=== PATIENT | male | born 1990 | race African-American/Black ===

== ENCOUNTER 2016-11-07 11:52 | Emergency (ER) | payer SELFPAY ==
[2016-11-07 12:02] VITALS: BP 160/111
[2016-11-07] MEDS ORDERED: OXYCODONE-ACETAMINOPHEN 5-325 MG TABLET PO ONE (12:28)
[2016-11-07] MEDS ORDERED: BUPIVACAINE HCL 0.5%-EPI 1:200000 INJ/PF 30 ML VIAL INJ ONE (12:29)
--- NOTE | 2016-11-07 13:23 | ER Document Report ---
HPI - HPI Patient complains to provider of: Dental pain Onset: Last week Onset/Duration: Worse Quality of pain: Sharp Pain Level: 5 Context: Patient complains of dental pain to the left lower jaw for the past week that got noticeably worse today. Patient denies any fever, cough, cold symptoms, back pain or chest pain. Associated Symptoms: Other - Dental pain Exacerbated by: Denies Relieved by: Denies Similar symptoms previously: Yes Recently seen / treated by doctor: No - ROS ROS below otherwise negative: Yes Systems Reviewed and Negative: Yes All other systems reviewed and negative - CONSTITUTIONAL Constitutional: DENIES: Fever, Chills - NEURO Neurology: DENIES: Weakness - CARDIOVASCULAR Cardiovascular: DENIES: Chest pain - RESPIRATORY Respiratory: DENIES: Trouble Breathing, Coughing - GASTROINTESTINAL Gastrointestinal: DENIES: Nausea, Patient vomiting - MUSCULOSKELETAL Musculoskeletal: DENIES: Back Pain, Neck Pain - DERM Skin Color: Normal Skin Problems: None Past Medical History - General Information source: Patient - Social History Smoking Status: Current Every Day Smoker Chew tobacco use (# tins/day): No Frequency of alcohol use: Social Drug Abuse: Marijuana Occupation: [employer] A [employer] service Lives with: Spouse/Significant other Family History: CAD, Hyperlipidemia, Hypertension Pulmonary Medical History: Reports: Hx Asthma - A CHILD, NO MEDS NOW Renal/ Medical History: Denies: Hx Peritoneal Dialysis Surgical Hx: Negative - Immunizations Hx Diphtheria, Pertussis, Tetanus Vaccination: Yes Vertical Provider Document - CONSTITUTIONAL Agree With Documented VS: Yes Exam Limitations: No Limitations General Appearance: WD/WN, No Apparent Distress - INFECTION CONTROL TRAVEL OUTSIDE OF THE [place] IN LAST 30 DAYS: No - HEENT HEENT: Atraumatic, Normocephalic Mouth Diagram: 1 - erupting tooth, tender to touch - NECK Neck: Normal Inspection, Supple. negative: Lymphadenopathy-Left, Lymphadenopathy-Right - RESPIRATORY Respiratory: Breath Sounds Normal, No Respiratory Distress O2 Sat by Pulse Oximetry: 100 - CARDIOVASCULAR Cardiovascular: Regular Rate, Regular Rhythm - MUSCULOSKELETAL/EXTREMETIES Musculoskeletal/Extremeties: MAEW - NEURO Level of Consciousness: Awake, Alert, Appropriate Motor/Sensory: No Motor Deficit - DERM Integumentary: Warm, Dry, No Rash Course - Re-evaluation Re-evalutation: 11/07/16 13:22 Inferior alveolar dental block performed, patient reports pain relief from dental pain 11/07/16 13:23 The patient has been informed that they may have pre-hypertension or hypertension based on a blood pressure reading in the emergency department. I recommend that patient call the primary care provider listed on their discharge instructions or a physician of their choice by this week to arrange follow-up for further evaluation of possible pre-hypertension or hypertension. - Vital Signs Vital signs: Temp Pulse Resp BP Pulse Ox 98.8 F 65 18 160/111 H 100 11/07/16 12:00 11/07/16 12:00 11/07/16 12:00 11/07/16 12:00 11/07/16 12:00 Discharge - Discharge Clinical Impression: Elevated blood pressure reading, Pain, dental Condition: Stable Disposition: HOME, SELF-CARE Instructions: Dentist, Oral Narcotic Medication ([facility]), Toothache ([facility]) Additional Instructions: Return immediately for any new or worsening symptoms Followup with your primary care provider, call tomorrow to make a followup appointment Follow-up with a dental care provider Prescriptions: Acetaminophen with Codeine [Acetaminophen-Cod #3 Tablet] 1 each PO Q6 PRN #15 tablet PRN Reason: Naproxen [Naprosyn 250 Nmg Tablet] 1 tab PO BID #14 tablet Forms: Return to Work Referrals: [facility] [Provider Group] - Follow up as needed [facility] [Provider Group] - Follow up tomorrow
== END 2016-11-07 13:34 | disposition home or self-care (01) ==
LOC: ER 11:52
DX: K08.89 Other specified disorders of teeth and supporting structures (principal); R03.0 Elevated blood-pressure reading, without diagnosis of hypertension; F17.200 Nicotine dependence, unspecified, uncomplicated
CPT/HCPCS: 99282; J3490

== ENCOUNTER 2017-01-05 14:13 | Emergency (ER) | payer SELFPAY ==
[2017-01-05 14:17] VITALS: BP 147/93
--- NOTE | 2017-01-05 14:36 | ER Document Report ---
ED General - General Chief Complaint: Productive Cough Stated Complaint: COUGH Time Seen by Provider: 01/05/17 14:32 Mode of Arrival: Ambulatory Information source: Patient Notes: Patient states he has cough and cold for 2-3 days. He states that he had some small specks of blood when he coughed. Usually the mucus is been yellow-green. Symptoms are worse with exertion and better with rest. There is no significant radiation of the symptoms. Symptoms have been intermittent. They are mild to moderate. TRAVEL OUTSIDE OF THE [place] IN LAST 30 DAYS: No - Related Data Allergies/Adverse Reactions: No Known Allergies Allergy (Verified 01/05/17 14:15) Past Medical History - General Information source: Patient - Social History Smoking Status: Current Every Day Smoker Chew tobacco use (# tins/day): No Frequency of alcohol use: Social Drug Abuse: None Family History: CAD, Hyperlipidemia, Hypertension Patient has suicidal ideation: No Patient has homicidal ideation: No Pulmonary Medical History: Reports: Hx Asthma - A CHILD, NO MEDS NOW Renal/ Medical History: Denies: Hx Peritoneal Dialysis - Immunizations Hx Diphtheria, Pertussis, Tetanus Vaccination: Yes Review of Systems - Review of Systems Constitutional: denies: Chills, Fever Cardiovascular: denies: Chest pain, Palpitations Respiratory: Cough, Sputum. denies: Short of breath Physical Exam - Vital signs Vitals: Temp Pulse Resp BP Pulse Ox 99.1 F 84 16 147/93 H 100 01/05/17 14:15 01/05/17 14:15 01/05/17 14:15 01/05/17 14:15 01/05/17 14:15 Interpretation: Hypertensive - General General appearance: Appears well, Alert - HEENT Head: Normocephalic, Atraumatic Eyes: Normal Pupils: PERRL - Respiratory Respiratory status: No respiratory distress Chest status: Nontender Breath sounds: Normal Chest palpation: Normal - Cardiovascular Rhythm: Regular Heart sounds: Normal auscultation Murmur: No - Abdominal Inspection: Normal Distension: No distension Bowel sounds: Normal Tenderness: Nontender Organomegaly: No organomegaly - Back Back: Normal, Nontender - Extremities General upper extremity: Normal inspection, Nontender, Normal color, Normal ROM , Normal temperature General lower extremity: Normal inspection, Nontender, Normal color, Normal ROM , Normal temperature, Normal weight bearing. No: Fortino's sign - Neurological Neuro grossly intact: Yes Cognition: Normal Orientation: AAOx4 [place] Coma Scale Eye Opening: Spontaneous [place] Coma Scale Verbal: Oriented [place] Coma Scale Motor: Obeys Commands [place] Coma Scale Total: 15 Speech: Normal Motor strength normal: LUE, RUE, LLE, RLE Sensory: Normal - Psychological Associated symptoms: Normal affect, Normal mood - Skin Skin Temperature: Warm Skin Moisture: Dry Skin Color: Normal Course - Vital Signs Vital signs: Temp Pulse Resp BP Pulse Ox 99.1 F 84 16 147/93 H 100 01/05/17 14:15 01/05/17 14:15 01/05/17 14:15 01/05/17 14:15 01/05/17 14:15 Discharge - Discharge Clinical Impression: URI (upper respiratory infection) Qualifiers: URI type: unspecified URI Qualified Code(s): J06.9 - Acute upper respiratory infection, unspecified Condition: Stable Disposition: HOME, SELF-CARE Instructions: Upper Respiratory Illness ([facility]) Additional Instructions: Your blood pressure is elevated today. Please have this rechecked within 1 week by your doctor. Prescriptions: Amlodipine Besylate [Norvasc 2.5 mg Tablet] 2.5 mg PO DAILY #30 tablet Amoxicillin 500 mg PO TID 7 Days #21 capsule Benzonatate [Tessalon Perles 100 mg Capsule] 100 mg PO ASDIR PRN #40 capsule PRN Reason: Forms: Elevated Blood Pressure, Return to Work Referrals: NATY HINOJOSA MD [COMMUNITY BASED STAFF] - Follow up as needed
== END 2017-01-05 14:57 | disposition home or self-care (01) ==
LOC: ER 14:13
DX: J06.9 Acute upper respiratory infection, unspecified (principal); R05 Cough; F17.200 Nicotine dependence, unspecified, uncomplicated
CPT/HCPCS: 99283

== ENCOUNTER 2017-02-03 09:03 | Emergency (ER) | payer SELFPAY ==
[2017-02-03] MEDS ORDERED: NYSTATIN/TRIAMCIN OINTMENT 15 GM TP ONE (09:27)
--- NOTE | 2017-02-03 09:27 | ER Document Report ---
ED Extremity Problem, Lower - General Chief Complaint: Foot Pain Stated Complaint: FOOT PAIN Time Seen by Provider: 02/03/17 09:12 Mode of Arrival: Ambulatory Information source: Patient Notes: 27-year-old male presents to ED for complaint of skin issue between his fourth and fifth toe on his left foot. He says it is been bothering him for at least a month or so but yesterday became much more painful. States he has never had this before and does not know what it is. TRAVEL OUTSIDE OF THE [place] IN LAST 30 DAYS: No - HPI Patient complains to provider of: Pain. No: Injury Location: 4th Toe, 5th Toe Occurred: Other - A month Onset/Duration: Gradual Quality of pain: Achy, Sharp Severity: Moderate Pain Level: 2 Context: Other - Athlete's foot Recent injury: No Associated symptoms: Painful ambulation Exacerbated by: Walking Relieved by: Nothing - Related Data Allergies/Adverse Reactions: No Known Allergies Allergy (Verified 02/03/17 09:04) Past Medical History - General Information source: Patient - Social History Smoking Status: Current Every Day Smoker Cigarette use (# per day): Yes - One third pack per day Chew tobacco use (# tins/day): No Smoking Education Provided: Yes - Less than 2 minutes Frequency of alcohol use: Social Drug Abuse: Marijuana Lives with: Spouse/Significant other Family History: CAD, DM, Hyperlipidemia, Hypertension Patient has suicidal ideation: No Patient has homicidal ideation: No - Past Medical History Cardiac Medical History: Reports: None Pulmonary Medical History: Reports: Hx Asthma - A CHILD, NO MEDS NOW EENT Medical History: Reports: None Neurological Medical History: Reports: None Endocrine Medical History: Reports: None Renal/ Medical History: Reports: None Malignancy Medical History: Reports None GI Medical History: Reports: None Musculoskeltal Medical History: Reports None Skin Medical History: Reports None Psychiatric Medical History: Reports: None Traumatic Medical History: Reports: None Infectious Medical History: Reports: None Surgical Hx: Negative Past Surgical History: Reports: None - Immunizations Immunizations up to date: Yes Hx Diphtheria, Pertussis, Tetanus Vaccination: Yes Review of Systems - Review of Systems Constitutional: No symptoms reported EENT: No symptoms reported Cardiovascular: No symptoms reported Respiratory: No symptoms reported Gastrointestinal: No symptoms reported Genitourinary: No symptoms reported Male Genitourinary: No symptoms reported Musculoskeletal: No symptoms reported Skin: Other - Athlete's foot between the left fourth and fifth toe Hematologic/Lymphatic: No symptoms reported Neurological/Psychological: No symptoms reported Physical Exam - Vital signs Vitals: Temp Pulse Resp BP Pulse Ox 97.9 F 70 14 124/76 97 02/03/17 09:12 02/03/17 09:12 02/03/17 09:12 02/03/17 09:12 02/03/17 09:12 Interpretation: Normal - General General appearance: Appears well, Alert - HEENT Head: Normocephalic, Atraumatic Eyes: Normal Pupils: PERRL - Respiratory Respiratory status: No respiratory distress Chest status: Nontender Breath sounds: Normal Chest palpation: Normal - Cardiovascular Rhythm: Regular Heart sounds: Normal auscultation Murmur: No - Abdominal Inspection: Normal Distension: No distension Bowel sounds: Normal Tenderness: Nontender Organomegaly: No organomegaly - Back Back: Normal, Nontender - Extremities General upper extremity: Normal inspection, Nontender, Normal color, Normal ROM , Normal temperature General lower extremity: Normal inspection, Nontender, Normal color, Normal ROM , Normal temperature, Normal weight bearing. No: Fortino's sign - Neurological Neuro grossly intact: Yes Cognition: Normal Orientation: AAOx4 [place] Coma Scale Eye Opening: Spontaneous [place] Coma Scale Verbal: Oriented [place] Coma Scale Motor: Obeys Commands [place] Coma Scale Total: 15 Speech: Normal Motor strength normal: LUE, RUE, LLE, RLE Sensory: Normal - Psychological Associated symptoms: Normal affect, Normal mood - Skin Skin Temperature: Warm Skin Moisture: Dry Skin Color: Normal Location of irregularity: Other - Fungal infection between the left fourth and fifth toe with skin to the area Irregularity with: Tenderness Course - Vital Signs Vital signs: Temp Pulse Resp BP Pulse Ox 98.0 F 65 18 113/75 100 02/03/17 10:01 02/03/17 10:01 02/03/17 10:01 02/03/17 10:01 02/03/17 10:01 Discharge - Discharge Clinical Impression: Tinea pedis Qualifiers: Laterality: left Qualified Code(s): B35.3 - Tinea pedis Condition: Stable Disposition: HOME, SELF-CARE Instructions: Family Physicians / Practices Additional Instructions: Athletes Foot Athlete's foot is a fungus infection of the skin. It typically causes cracking and peeling between the toes. The fungus thrives in a damp, warm environment. You should wash between the toes twice daily with a mild soap (like Phisoderm, Ivory, or Neutrogena). Dry between the toes thoroughly but carefully , and allow to air-dry several minutes. Then apply antifungal medication. If your feet sweat during work or sports, you should put cotton between the toes, changing it every hour or two. Frequent changes of socks are a must, both while the infection is present and afterward. Complete healing may take two or three weeks. Recurrences are common. Keep the spaces between the toes as clean and dry as possible. If increasing swelling and redness develops, if red streaks are seen, or if fever or chilling occur, return immediately for re-evaluation. FOLLOW-UP CARE: If you have been referred to a physician for follow-up care, call the physician s office for an appointment as you were instructed or within the next two days. If you experience worsening or a significant change in your symptoms, notify the physician immediately or return to the Emergency Department at any time for re-evaluation. Prescriptions: Nystatin/Triamcin [Mycolog-II Ointment 15 gm] 15 applic TP BID #1 tube Forms: Return to Work
[2017-02-03 10:04] VITALS: BP 113/75
== END 2017-02-03 10:01 | disposition home or self-care (01) ==
LOC: ER 09:03
DX: B35.3 Tinea pedis (principal); F17.210 Nicotine dependence, cigarettes, uncomplicated; Z71.6 Tobacco abuse counseling
CPT/HCPCS: 99283; J3490

== ENCOUNTER 2018-03-13 04:14 | Emergency (ER) | payer SELFPAY ==
[2018-03-13 04:22] VITALS: BP 167/117
[2018-03-13] MEDS ORDERED: NORMAL SALINE 1000 ML 1,000 ML IV ONE (05:23)
--- NOTE | 2018-03-13 05:26 | ER Document Report ---
ED Medical Screen (RME) - General Chief Complaint: Knee Pain Stated Complaint: BILATERAL KNEE PAIN Time Seen by Provider: 03/13/18 05:22 Notes: 28-year-old male, states he woke up this morning and felt that he had pain in his knees on both sides moving up towards his thighs and hips on both sides that were so bad that he felt he could not walk. He still feels it is painful to walk. He denies injury. He admits that he has been heavily drinking alcohol for the past few days. He denies history of the same. He denies any daily medications. He smokes, smokes marijuana, denies history of IV drug abuse. Denies fever. Denies any other symptoms. TRAVEL OUTSIDE OF THE [place] IN LAST 30 DAYS: No - Related Data Allergies/Adverse Reactions: No Known Allergies Allergy (Verified 02/03/17 09:04) Past Medical History - Social History Chew tobacco use (# tins/day): No Frequency of alcohol use: Heavy Drug Abuse: Marijuana Pulmonary Medical History: Reports: Hx Asthma - A CHILD, NO MEDS NOW Renal/ Medical History: Denies: Hx Peritoneal Dialysis - Immunizations Immunizations up to date: Yes Hx Diphtheria, Pertussis, Tetanus Vaccination: Yes Physical Exam - Vital signs Vitals: Temp Pulse Resp BP Pulse Ox 98.9 F 92 18 167/117 H 100 03/13/18 04:20 03/13/18 04:20 03/13/18 04:20 03/13/18 04:20 03/13/18 04:20 - Extremities General lower extremity: Other - I do not appreciate tenderness over the knees, with bending the knees, erythema, swelling, or any obvious abnormality of the lower extremity. Normal distal pulses and sensation. Course - Vital Signs Vital signs: Temp Pulse Resp BP Pulse Ox 98.9 F 92 18 167/117 H 100 03/13/18 04:20 03/13/18 04:20 03/13/18 04:20 03/13/18 04:20 03/13/18 04:20
[2018-03-13 06:19] LABS: ABSOLUTE BASOPHILS # (AUTO) 0.1 10^3/uL (0.0-0.2); ABSOLUTE EOSINOPHILS # (AUTO) 0.1 10^3/uL (0.0-0.6); ABSOLUTE LYMPHOCYTES (AUTO) 1.5 10^3/uL (0.5-4.7); ABSOLUTE MONOCYTES (AUTO) 0.4 10^3/uL (0.1-1.4); ABSOLUTE NEUT (AUTO) 5.1 10^3/uL (1.7-8.2); BASOPHILS % (AUTO) 0.8 % (0-2); EOSINOPHILS % (AUTO) 1.1 % (0-6); HEMATOCRIT 36.7 % (37.9-51.0); HEMOGLOBIN 12.3 g/dL (13.5-17.0); LYMPHOCYTES % (AUTO) 21.5 % (13-45); MEAN CORPUSCULAR HEMOGLOBIN 27.7 pg (27.0-33.4); MEAN CORPUSCULAR HGB CONC 33.6 g/dL (32.0-36.0); MEAN CORPUSCULAR VOLUME 82 fl (80-97); MONOCYTES % (AUTO) 5.6 % (3-13); PLATELET COUNT 257 10^3/uL (150-450); RED BLOOD COUNT 4.46 10^6/uL (4.35-5.55); RED CELL DISTRIBUTION WIDTH 14.7 % (11.5-14.0); TOTAL CELLS COUNTED % (AUTO) 100 %; WHITE BLOOD COUNT 7.2 10^3/uL (4.0-10.5)
[2018-03-13 07:01] LABS: ALANINE AMINOTRANSFERASE 32 U/L (21-72); ALBUMIN 4.2 g/dL (3.5-5.0); ALKALINE PHOSPHATASE 61 U/L (38-126); ANION GAP 6 (5-19); ASPARTATE AMINO TRANSFERASE 28 U/L (17-59); BILIRUBIN,DIRECT 0.1 mg/dL (0.0-0.4); BILIRUBIN,TOTAL 0.2 mg/dL (0.2-1.3); BLOOD UREA NITROGEN 13 mg/dL (7-20); CALCIUM 9.5 mg/dL (8.4-10.2); CARBON DIOXIDE 27 mmol/L (22-30); CHLORIDE 107 mmol/L (98-107); CREATINE KINASE 163 U/L (55-170); GLUCOSE 99 mg/dL (75-110); POTASSIUM 4.8 mmol/L (3.6-5.0); SODIUM 140.4 mmol/L (137-145); TOTAL PROTEIN 7.2 g/dL (6.3-8.2)
--- NOTE | 2018-03-13 08:36 | ER Document Report ---
ED General - General Chief Complaint: Knee Pain Stated Complaint: BILATERAL KNEE PAIN Time Seen by Provider: 03/13/18 05:22 TRAVEL OUTSIDE OF THE [place] IN LAST 30 DAYS: No - HPI Patient complains to provider of: Bilateral knee pain Notes: Patient coming in for evaluation of bilateral knee pain. Patient was seen by the triage provider's notes provided below 28-year-old male, states he woke up this morning and felt that he had pain in his knees on both sides moving up towards his thighs and hips on both sides that were so bad that he felt he could not walk. He still feels it is painful to walk. He denies injury. He admits that he has been heavily drinking alcohol for the past few days. He denies history of the same. He denies any daily medications. He smokes, smokes marijuana, denies history of IV drug abuse. Denies fever. Denies any other symptoms. Patient upon my evaluation has received 1 L of fluid states he is feeling much better. Patient denies any trauma patient denies any fevers chills nausea vomiting diarrhea denies any recent travel. Patient otherwise resting comfortably denies any swelling of his legs denies history of DVT PE denies a family history of DVT PE - Related Data Allergies/Adverse Reactions: No Known Allergies Allergy (Verified 02/03/17 09:04) Past Medical History - Social History Smoking Status: Current Every Day Smoker Chew tobacco use (# tins/day): No Frequency of alcohol use: Heavy Drug Abuse: Marijuana Family History: CAD, DM, Hyperlipidemia, Hypertension Patient has suicidal ideation: No Patient has homicidal ideation: No Pulmonary Medical History: Reports: Hx Asthma - A CHILD, NO MEDS NOW Renal/ Medical History: Denies: Hx Peritoneal Dialysis - Immunizations Immunizations up to date: Yes Hx Diphtheria, Pertussis, Tetanus Vaccination: Yes Review of Systems - Review of Systems Constitutional: No symptoms reported EENT: No symptoms reported Cardiovascular: No symptoms reported Respiratory: No symptoms reported Gastrointestinal: No symptoms reported Genitourinary: No symptoms reported Male Genitourinary: No symptoms reported Musculoskeletal: Other - Knee pain Skin: No symptoms reported Hematologic/Lymphatic: No symptoms reported Neurological/Psychological: No symptoms reported -: Yes All other systems reviewed and negative Physical Exam - Vital signs Vitals: Temp Pulse Resp BP Pulse Ox 98.9 F 92 18 167/117 H 100 03/13/18 04:20 03/13/18 04:20 03/13/18 04:20 03/13/18 04:20 03/13/18 04:20 Interpretation: Normal - General General appearance: Appears well, Alert - HEENT Head: Normocephalic, Atraumatic Eyes: Normal Pupils: PERRL - Respiratory Respiratory status: No respiratory distress Chest status: Nontender Breath sounds: Normal Chest palpation: Normal - Cardiovascular Rhythm: Regular Heart sounds: Normal auscultation Murmur: No - Abdominal Inspection: Normal Distension: No distension Bowel sounds: Normal Tenderness: Nontender Organomegaly: No organomegaly - Back Back: Normal, Nontender - Extremities General upper extremity: Normal inspection, Nontender, Normal color, Normal ROM, Normal temperature General lower extremity: Normal inspection, Nontender, Normal color, Normal ROM, Normal temperature, Normal weight bearing. No: Fortino's sign - Neurological Neuro grossly intact: Yes Cognition: Normal Orientation: AAOx4 [place] Coma Scale Eye Opening: Spontaneous [place] Coma Scale Verbal: Oriented [place] Coma Scale Motor: Obeys Commands [place] Coma Scale Total: 15 Speech: Normal Motor strength normal: LUE, RUE, LLE, RLE Sensory: Normal - Psychological Associated symptoms: Normal affect, Normal mood - Skin Skin Temperature: Warm Skin Moisture: Dry Skin Color: Normal Course - Re-evaluation Re-evalutation: 03/13/18 13:25 Laboratory studies showed no signs of rhabdomyolysis noted muscle breakdown. Patient will be discharged home stating feeling much better. - Vital Signs Vital signs: Temp Pulse Resp BP Pulse Ox 98.9 F 92 18 167/117 H 100 03/13/18 04:20 03/13/18 04:20 03/13/18 04:20 03/13/18 04:20 03/13/18 04:20 - Laboratory Result Diagrams: 03/13/18 06:00 03/13/18 06:00 Laboratory results interpreted by me: 03/13/18 06:00 Hgb 12.3 L Hct 36.7 L RDW 14.7 H Discharge - Discharge Clinical Impression: Bilateral knee pain Qualifiers: Chronicity: acute Qualified Code(s): M25.561 - Pain in right knee Condition: Good Disposition: HOME, SELF-CARE Instructions: Myalagia (Muscle Pain) ([facility]) Additional Instructions: Evaluation today shows no critical pathology for your bilateral knee pain. Do believe is due to underlying dehydration caused by your alcohol consumption would recommend following up with your primary care physician drinking plenty of fluids and abstaining from alcohol for the next 4-5 days. Prescriptions: Ibuprofen [Motrin 600 mg Tablet] 600 mg PO Q8HP PRN #21 tablet PRN Reason: Forms: Return to Work
== END 2018-03-13 09:02 | disposition home or self-care (01) ==
LOC: ER 04:14
DX: M25.561 Pain in right knee (principal); M25.562 Pain in left knee; F10.920 Alcohol use, unspecified with intoxication, uncomplicated; F17.200 Nicotine dependence, unspecified, uncomplicated; J45.909 Unspecified asthma, uncomplicated
CPT/HCPCS: 99283; 96360; 36415; 82550; 85025; 80053; J7030

== ENCOUNTER 2018-10-04 07:49 | Emergency (ER) | payer SELFPAY ==
[2018-10-04] MEDS ORDERED: NORMAL SALINE 1000 ML 1,000 ML IV ONE (09:17)
[2018-10-04] MEDS ORDERED: ONDANSETRON HCL INJ/PF 4 MG/2 ML SDV IV ONE (09:17)
[2018-10-04] MEDS ORDERED: LOPERAMIDE HCL 2 MG CAPSULE PO ONE (09:18)
--- NOTE | 2018-10-04 09:21 | ER Document Report ---
HPI - HPI Patient complains to provider of: Nausea vomiting diarrhea Time Seen by Provider: 10/04/18 08:55 Onset: Yesterday Onset/Duration: Gradual Pain Level: Denies Context: Patient presents complaining of nausea vomiting diarrhea that started yesterday. Patient reports vomiting numerous episodes yesterday although only once today. Patient states he had diarrhea 4 times today. No blood in the stool or emesis. No fever. Patient denies any abdominal tenderness. Associated Symptoms: Diarrhea, Nausea, Vomiting. denies: Chills, Nonproductive cough, Productive cough, Fever Exacerbated by: Denies Relieved by: Denies Similar symptoms previously: No Recently seen / treated by doctor: No - ROS ROS below otherwise negative: Yes Systems Reviewed and Negative: Yes All other systems reviewed and negative - CONSTITUTIONAL Constitutional: DENIES: Fever, Chills - NEURO Neurology: DENIES: Headache, Weakness - CARDIOVASCULAR Cardiovascular: DENIES: Chest pain - RESPIRATORY Respiratory: DENIES: Trouble Breathing, Coughing - GASTROINTESTINAL Gastrointestinal: REPORTS: Nausea, Patient vomiting, Diarrhea. DENIES: Abdominal Pain, Constipation, Black / Bloody Stools - URINARY Urinary: DENIES: Dysuria, Urgency, Frequency - MUSCULOSKELETAL Musculoskeletal: DENIES: Back Pain - DERM Skin Color: Normal Skin Problems: None Past Medical History - General Information source: Patient - Social History Smoking Status: Current Every Day Smoker Chew tobacco use (# tins/day): No Smoking Education Provided: Yes Frequency of alcohol use: Heavy Drug Abuse: None Occupation: Maintenance Family History: CAD, DM, Hyperlipidemia, Hypertension Patient has suicidal ideation: No Patient has homicidal ideation: No Pulmonary Medical History: Reports: Hx Asthma - A CHILD, NO MEDS NOW Renal/ Medical History: Denies: Hx Peritoneal Dialysis Surgical Hx: Negative - Immunizations Immunizations up to date: Yes Hx Diphtheria, Pertussis, Tetanus Vaccination: Yes Vertical Provider Document - CONSTITUTIONAL Agree With Documented VS: Yes Exam Limitations: No Limitations General Appearance: WD/WN, No Apparent Distress - INFECTION CONTROL TRAVEL OUTSIDE OF THE [place] IN LAST 30 DAYS: No - HEENT HEENT: Atraumatic, Normal ENT Exam, Normocephalic - NECK Neck: Normal Inspection, Supple. negative: Lymphadenopathy-Left, Lymphadenopathy-Right - RESPIRATORY Respiratory: Breath Sounds Normal, No Respiratory Distress, Chest Non-Tender - CARDIOVASCULAR Cardiovascular: Regular Rate, Regular Rhythm, No Murmur. negative: Tachycardia - GI/ABDOMEN Gastrointestinal: Abdomen Soft, Abdomen Non-Tender, No Organomegaly, Normal Bowel Sounds - BACK Back: Normal Inspection. negative: CVA Tenderness-Right, CVA Tenderness-Left - MUSCULOSKELETAL/EXTREMETIES Musculoskeletal/Extremeties: JABARI VELAZQUEZ - NEURO Level of Consciousness: Awake, Alert, Appropriate Motor/Sensory: No Motor Deficit - DERM Integumentary: Warm, Dry, No Rash Course - Re-evaluation Re-evalutation: 10/04/18 10:43 Patient able to tolerate oral fluids without emesis. Patient has had an additional episode of diarrhea. Patient continues with soft abdomen, no tenderness. Nontoxic appearance. Patient encouraged to stay well-hydrated and take Imodium [id number] as directed to help with his symptoms. Good return precautions discussed at this time. Patient advised of incidental finding of anemia on his diagnostic test today. - Vital Signs Vital signs: Temp Pulse Resp BP Pulse Ox 98.8 F 59 L 16 118/68 97 10/04/18 07:52 10/04/18 07:52 10/04/18 07:52 10/04/18 07:52 10/04/18 07:52 - Laboratory Result Diagrams: 10/04/18 09:40 10/04/18 09:40 Discharge - Discharge Clinical Impression: Nausea vomiting and diarrhea Condition: Stable Disposition: HOME, SELF-CARE Instructions: Antinausea Medication ([facility]), Diarrhea, Nonspecific ([facility]), Intravenous (IV) Fluids ([facility]), Vomiting ([facility]) Additional Instructions: Return immediately for any new or worsening symptoms Followup with your primary care provider, call tomorrow to make a followup appointment You may take Imodium [id number] to help with your diarrhea symptoms Prescriptions: Ondansetron HCl [Zofran 4 mg Tablet] 1 - 2 tab PO Q6 PRN #15 tablet PRN Reason: Forms: Return to Work Referrals: [facility] [Provider Group] - Follow up as needed
[2018-10-04 10:05] LABS: ABSOLUTE EOSINOPHILS # (AUTO) 0.2 10^3/uL (0.0-0.6); ABSOLUTE LYMPHOCYTES (AUTO) 1.6 10^3/uL (0.5-4.7); ABSOLUTE MONOCYTES (AUTO) 0.4 10^3/uL (0.1-1.4); ABSOLUTE NEUT (AUTO) 3.1 10^3/uL (1.7-8.2); BASOPHILS % (AUTO) 0.4 % (0-2); EOSINOPHILS % (AUTO) 3.3 % (0-6); HEMATOCRIT 35.3 % (37.9-51.0); HEMOGLOBIN 11.6 g/dL (13.5-17.0); LYMPHOCYTES % (AUTO) 30.5 % (13-45); MEAN CORPUSCULAR HEMOGLOBIN 27.4 pg (27.0-33.4); MEAN CORPUSCULAR VOLUME 83 fl (80-97); MONOCYTES % (AUTO) 7.7 % (3-13); PLATELET COUNT 275 10^3/uL (150-450); RED BLOOD COUNT 4.25 10^6/uL (4.35-5.55); RED CELL DISTRIBUTION WIDTH 14.7 % (11.5-14.0); SEGMENTED NEUTROPHILS % (AUTO) 58.1 % (42-78); TOTAL CELLS COUNTED % (AUTO) 100 %; WHITE BLOOD COUNT 5.3 10^3/uL (4.0-10.5)
[2018-10-04 10:14] LABS: ALBUMIN 3.7 g/dL (3.5-5.0); ALKALINE PHOSPHATASE 50 U/L (38-126); ANION GAP 8 (5-19); ASPARTATE AMINO TRANSFERASE 27 U/L (17-59); BILIRUBIN,DIRECT 0.2 mg/dL (0.0-0.4); BILIRUBIN,TOTAL 0.3 mg/dL (0.2-1.3); BLOOD UREA NITROGEN 17 mg/dL (7-20); CALCIUM 9.3 mg/dL (8.4-10.2); CARBON DIOXIDE 25 mmol/L (22-30); CHLORIDE 103 mmol/L (98-107); GLUCOSE 82 mg/dL (75-110); POTASSIUM 4.9 mmol/L (3.6-5.0); TOTAL PROTEIN 6.9 g/dL (6.3-8.2)
[2018-10-04 10:58] VITALS: BP 114/72
== END 2018-10-04 10:58 | disposition home or self-care (01) ==
LOC: ER 07:49
DX: R11.2 Nausea with vomiting, unspecified (principal); R19.7 Diarrhea, unspecified; F17.200 Nicotine dependence, unspecified, uncomplicated; D64.9 Anemia, unspecified
CPT/HCPCS: 36415; 83690; 85025; 80053; J2405; J7030; 96361; 96374; 99283

== ENCOUNTER 2018-11-18 09:37 | Emergency (ER) | payer SELFPAY ==
--- NOTE | 2018-11-18 09:55 | ER Document Report ---
HPI - HPI Time Seen by Provider: 11/18/18 09:50 Notes: Patient is a 28-year-old male with no significant past medical history presents complaining of possible abscess to his right armpit that is been present for the past few months intermittently, but inc recently. Patient states that he was able to get some drainage out of it yesterday. He does have some soreness associated. He has not noticed any streaking. No other recent illness. He is able to eat and drink without difficulty. Denies drug allergies. Denies history of MRSA or IV drug abuse. Denies any headache, fever, URI, sore throat, chest pain, palpitations, syncope, cough, shortness of breath, wheeze, dyspnea, abdominal pain, nausea/vomiting/diarrhea, urinary retention, dysuria, hematuria, or rash. - ROS Systems Reviewed and Negative: Yes All other systems reviewed and negative Past Medical History - Social History Smoking Status: Current Every Day Smoker Family History: CAD, DM, Hyperlipidemia, Hypertension Pulmonary Medical History: Reports: Hx Asthma - A CHILD, NO MEDS NOW Renal/ Medical History: Denies: Hx Peritoneal Dialysis - Immunizations Immunizations up to date: Yes Hx Diphtheria, Pertussis, Tetanus Vaccination: Yes Vertical Provider Document - CONSTITUTIONAL Agree With Documented VS: Yes Notes: PHYSICAL EXAMINATION: GENERAL: Well-appearing, well-nourished and in no acute distress. LUNGS: Breath sounds clear to auscultation bilaterally and equal. No wheezes rales or rhonchi. HEART: Regular rate and rhythm without murmurs, rubs, gallops. Musculoskeletal: FROM to passive/active. Strength 5+/5. Extremities: No cyanosis, clubbing, or edema b/l. Peripheral pulses 2+. Capillary refill less than 3 seconds. NEUROLOGICAL: Cranial nerves grossly intact. Normal speech, normal gait. Normal sensory, motor exams PSYCH: Normal mood, normal affect. SKIN: there is a 1.5cm fluctuant tender area to the rt axilla. Mild erythema. Mild induration. No streaks or discharge. - INFECTION CONTROL TRAVEL OUTSIDE OF THE [place] IN LAST 30 DAYS: No Course - Re-evaluation Re-evalutation: 11/18/18 Patient is an afebrile, well-hydrated, 28-year-old male who presents to the emergency department with an abscess to the right axilla needing incision and drainage. Vitals are acceptable without significant tachycardia, tachypnea, or hypoxia. PE is otherwise unremarkable. Patient is nontoxic-appearing and is tolerating p.o. without difficulty. Incision and drainage was performed successfully without any complications and packing was placed. Wound dressing was placed and wound instructions reviewed. Wound culture was obtained. No further labs or imaging warranted. Low suspicion for any sepsis, meningitis, SJS, or other systemic emergent condition at this time. Patient to monitor symptoms for any acute changes and seek medical attention if so. Recheck with your PCM in 2-3 days. Consider consult with the general surgeon. Return to the ED with any worsening/concerning symptoms as reviewed. Patient is in agreement. - Vital Signs Vital signs: Temp Pulse Resp BP Pulse Ox 97.9 F 83 16 150/91 H 98 11/18/18 09:42 11/18/18 09:42 11/18/18 09:42 11/18/18 09:42 11/18/18 09:42 Procedures - Incision and Drainage Right axilla Type: Simple Anesthetic type: 1% Lidocaine mL's of anesthetic: 3 Blade size: 11 I&D procedure: Chlorprep applied, Iodoform packing placed, Sterile dressing applied Incision Method: Incision made by scalpel Amount/type of drainage: scant purulent Discharge - Discharge Clinical Impression: Abscess of right axilla Condition: Stable Disposition: HOME, SELF-CARE Instructions: Abscess ([facility]), Cephalexin ([facility]), Trimethoprim-Sulfa ([facility]) Additional Instructions: Do not shower or bathe for 24 hours. After 24 hours you may shower but no submersion of the wound under water. Keep the original dressing on the wound for 24 hours unless the drainage soaks through. Change the dressing daily thereafter and use a small amount of triple antibiotic ointment over the open wound. See your PCM in 2-3 days for recheck and continue direction for wound packing. Monitor for any signs of worsening pain or redness, streaks, and/or fever. Return to the ED if noticing any of the above symptoms or as needed. Take medications as directed. Prescriptions: Sulfamethoxazole/Trimethoprim [Bactrim Ds Tablet] 1 each PO BID #20 tablet Cephalexin Monohydrate [Keflex 500 mg Capsule] 500 mg PO TID #30 capsule Forms: Return to Work, Smoking Cessation Education, Elevated Blood Pressure Referrals: ELIU ALLEN MD [ACTIVE STAFF] - Follow up as needed
[2018-11-18 10:20] VITALS: BP 149/100
== END 2018-11-18 10:21 | disposition home or self-care (01) ==
LOC: ER 09:37
PROC: 0H9BXZZ Drainage of Right Upper Arm Skin, External Approach (ICD-10-PCS; principal; 2018-11-18)
DX: L02.411 Cutaneous abscess of right axilla (principal); F17.200 Nicotine dependence, unspecified, uncomplicated; I10 Essential (primary) hypertension; J45.909 Unspecified asthma, uncomplicated
CPT/HCPCS: 87070; 87205; 87075; 10060; A6266; 99282

== ENCOUNTER 2018-12-08 17:21 | Emergency (ER) | payer SELFPAY ==
[2018-12-08 18:02] LABS: ABSOLUTE EOSINOPHILS # (AUTO) 0.1 10^3/uL (0.0-0.6); ABSOLUTE LYMPHOCYTES (AUTO) 1.7 10^3/uL (0.5-4.7); ABSOLUTE MONOCYTES (AUTO) 0.5 10^3/uL (0.1-1.4); ABSOLUTE NEUT (AUTO) 4.1 10^3/uL (1.7-8.2); BASOPHILS % (AUTO) 0.7 % (0-2); EOSINOPHILS % (AUTO) 1.3 % (0-6); HEMATOCRIT 36.8 % (37.9-51.0); LYMPHOCYTES % (AUTO) 26.3 % (13-45); MEAN CORPUSCULAR HEMOGLOBIN 27.4 pg (27.0-33.4); MEAN CORPUSCULAR HGB CONC 32.6 g/dL (32.0-36.0); MEAN CORPUSCULAR VOLUME 84 fl (80-97); MONOCYTES % (AUTO) 7.9 % (3-13); PLATELET COUNT 238 10^3/uL (150-450); RED BLOOD COUNT 4.38 10^6/uL (4.35-5.55); RED CELL DISTRIBUTION WIDTH 14.7 % (11.5-14.0); SEGMENTED NEUTROPHILS % (AUTO) 63.8 % (42-78); TOTAL CELLS COUNTED % (AUTO) 100 %; WHITE BLOOD COUNT 6.4 10^3/uL (4.0-10.5)
[2018-12-08 18:20] LABS: ALBUMIN 3.9 g/dL (3.5-5.0); ALKALINE PHOSPHATASE 55 U/L (38-126); ANION GAP 10 (5-19); ASPARTATE AMINO TRANSFERASE 22 U/L (17-59); BILIRUBIN,DIRECT 0.1 mg/dL (0.0-0.4); BILIRUBIN,TOTAL 0.3 mg/dL (0.2-1.3); BLOOD UREA NITROGEN 13 mg/dL (7-20); CARBON DIOXIDE 24 mmol/L (22-30); CHLORIDE 104 mmol/L (98-107); CREATINE KINASE 154 U/L (55-170); GLUCOSE 86 mg/dL (75-110); POTASSIUM 3.9 mmol/L (3.6-5.0); TOTAL PROTEIN 7.4 g/dL (6.3-8.2)
[2018-12-08] MEDS ORDERED: NORMAL SALINE 1000 ML 1,000 ML IV ONE (18:26)
[2018-12-08 18:42] LABS: APPEARANCE,URINE SLIGHTLY-CLOUDY; BILIRUBIN,URINE NEGATIVE (NEGATIVE); COLOR,URINE YELLOW; GLUCOSE, URINE NEGATIVE (NEGATIVE); KETONES,URINE NEGATIVE (NEGATIVE); LEUKOCYTE ESTERASE,URINE TRACE (NEGATIVE); NITRITE,URINE NEGATIVE (NEGATIVE); PROTEIN,URINE NEGATIVE (NEGATIVE); URINE SPECIFIC GRAVITY 1.019; UROBILINOGEN,URINE NEGATIVE mg/dL (<2.0)
[2018-12-08 18:47] LABS: CREATINE KINASE MB < 0.22 ng/mL (<4.55); TROPONIN I < 0.012 ng/mL
--- NOTE | 2018-12-08 19:05 | ER Document Report ---
ED General - General Chief Complaint: Syncope Stated Complaint: SYNCOPE Time Seen by Provider: 12/08/18 18:04 Notes: Patient is a 28-year-old male that presents to the emergency department for chief complaint of syncopal episode. Patient states she is doing orientation for work, was in a crowded room, and started feeling hot while he was standing, he went outside and sat down, was feeling a little bit better than he stood up, got real lightheaded and briefly passed out for less than 1 minute. EMS arrived, they gave him IV fluids and his blood sugar was around 60 so they gave him some oral glucagon he is feeling much better. At this time he denies having any pain. Denies headache, lightheadedness, dizziness, chest pain, shortness of breath or difficulty breathing. Denies any nausea or vomiting. Denies any other complaints. Past Medical History: Denies chronic medical conditions Past Surgical History: Denies recent or pertinent surgical history Social History: Denies tobacco, alcohol or drug use. Family History: Reviewed and noncontributory for presenting illness Allergies: Reviewed, see documented allergy list. REVIEW OF SYSTEMS: Other than noted above, the 12 point review of systems was reviewed with the patient and were negative, all pertinent findings are included in the HPI. PHYSICAL EXAMINATION: Vital signs reviewed, nursing noted reviewed. GENERAL: Well-appearing, well-nourished and in no acute distress. HEAD: Atraumatic, normocephalic. EYES: Eyes appear normal, extraocular movements intact, sclera anicteric, conjunctiva are normal. ENT: nares patent, oropharynx clear without exudates. Moist mucous membranes. NECK: Normal range of motion, supple without lymphadenopathy LUNGS: Breath sounds clear to auscultation bilaterally and equal. No wheezes rales or rhonchi. HEART: Regular rate and rhythm without murmurs ABDOMEN: Soft, nontender, normoactive bowel sounds. No rebound, guarding, or rigidity. No masses appreciated. EXTREMITIES: Nontender, good range of motion, no pitting or edema. NEUROLOGICAL: No focal neurological deficits. Moves all extremities spontaneously Motor and sensory grossly intact on exam. PSYCH: Normal mood, normal affect. SKIN: Warm, Dry, normal turgor, no rashes or lesions noted on exposed skin TRAVEL OUTSIDE OF THE [place] IN LAST 30 DAYS: No - Related Data Allergies/Adverse Reactions: No Known Allergies Allergy (Verified 02/03/17 09:04) Past Medical History - Social History Smoking Status: Current Every Day Smoker Frequency of alcohol use: Occasional Drug Abuse: Marijuana Family History: CAD, DM, Hyperlipidemia, Hypertension Patient has suicidal ideation: No Patient has homicidal ideation: No Pulmonary Medical History: Reports: Hx Asthma - A CHILD, NO MEDS NOW Renal/ Medical History: Denies: Hx Peritoneal Dialysis - Immunizations Immunizations up to date: Yes Hx Diphtheria, Pertussis, Tetanus Vaccination: Yes Physical Exam - Vital signs Vitals: Temp Resp BP Pulse Ox 98.0 F 14 126/82 H 100 12/08/18 17:34 12/08/18 17:34 12/08/18 17:34 12/08/18 17:34 Course - Re-evaluation Re-evalutation: Patient seen and examined, vital signs reviewed, patient appeared well on my exam, he had no complaints, and is feeling much better after IV fluids from EMS, blood work was sent and pending, and it did come back and was reviewed, patient was noted to have a mild elevation in creatinine of 1.4 which it seems that he has had in the past based on prior blood work, otherwise was essentially unremarkable. His EKG was unremarkable and negative as well as his chest x-ray. Prior to being able to discuss the patient's results with him he had eloped from the emergency department. Laboratory 12/08/18 12/08/18 12/08/18 17:35 17:35 17:35 WBC 6.4 RBC 4.38 Hgb 12.0 L Hct 36.8 L MCV 84 MCH 27.4 MCHC 32.6 RDW 14.7 H Plt Count 238 Lymph % (Auto) 26.3 [place] % (Auto) 7.9 Eos % (Auto) 1.3 Baso % (Auto) 0.7 Absolute Neuts (auto) 4.1 Absolute Lymphs (auto) 1.7 Absolute Monos (auto) 0.5 Absolute Eos (auto) 0.1 Absolute Basos (auto) 0.0 Seg Neutrophils % 63.8 Sodium 137.6 Potassium 3.9 Chloride 104 Carbon Dioxide 24 Anion Gap 10 BUN 13 Creatinine 1.40 H Est GFR ( Amer) > 60 Est GFR (MDRD) Non-Af > 60 Glucose 86 Calcium 9.0 Total Bilirubin 0.3 Direct Bilirubin 0.1 Neonat Total Bilirubin Not Reportable Neonat Direct Bilirubin Not Reportable Neonat Indirect Bili Not Reportable AST 22 ALT 15 Alkaline Phosphatase 55 Creatine Kinase 154 CK-MB (CK-2) < 0.22 Troponin I < 0.012 Total Protein 7.4 Albumin 3.9 Urine Color Urine Appearance Urine pH Ur Specific [place] Urine Protein Urine Glucose (UA) Urine Ketones Urine Blood Urine Nitrite Urine Bilirubin Urine Urobilinogen Ur Leukocyte Esterase Urine WBC (Auto) Urine RBC (Auto) U Hyaline Cast (Auto) Squamous Epi Cells Auto Urine Mucus (Auto) Urine Ascorbic Acid 12/08/18 18:10 WBC RBC Hgb Hct MCV MCH MCHC RDW Plt Count Lymph % (Auto) Stone[place] % (Auto) Eos % (Auto) Baso % (Auto) Absolute Neuts (auto) Absolute Lymphs (auto) Absolute Monos (auto) Absolute Eos (auto) Absolute Basos (auto) Seg Neutrophils % Sodium Potassium Chloride Carbon Dioxide Anion Gap BUN Creatinine Est GFR ( Amer) Est GFR (MDRD) Non-Af Glucose Calcium Total Bilirubin Direct Bilirubin Neonat Total Bilirubin Neonat Direct Bilirubin Neonat Indirect Bili AST ALT Alkaline Phosphatase Creatine Kinase CK-MB (CK-2) Troponin I Total Protein Albumin Urine Color YELLOW Urine Appearance SLIGHTLY-CLOUDY Urine pH 5.0 Ur Specific [place] 1.019 Urine Protein NEGATIVE Urine Glucose (UA) NEGATIVE Urine Ketones NEGATIVE Urine Blood NEGATIVE Urine Nitrite NEGATIVE Urine Bilirubin NEGATIVE Urine Urobilinogen NEGATIVE Ur Leukocyte Esterase TRACE H Urine WBC (Auto) 7 Urine RBC (Auto) 2 U Hyaline Cast (Auto) 8 Squamous Epi Cells Auto <1 Urine Mucus (Auto) RARE Urine Ascorbic Acid NEGATIVE Chest X-Ray 12/08/18 18:48 IMPRESSION: No acute cardiopulmonary process. - Vital Signs Vital signs: Temp Pulse Resp BP Pulse Ox 98.0 F 64 17 131/89 H 99 12/08/18 17:34 12/08/18 19:04 12/08/18 19:05 12/08/18 19:05 12/08/18 19:01 - Laboratory Result Diagrams: 12/08/18 17:35 12/08/18 17:35 Laboratory results interpreted by me: 12/08/18 12/08/18 12/08/18 17:35 17:35 18:10 Hgb 12.0 L Hct 36.8 L RDW 14.7 H Creatinine 1.40 H Ur Leukocyte Esterase TRACE H - EKG Interpretation by Me Additional EKG results interpreted by me: EKG demonstrates sinus rhythm with first-degree AV block, normal axis, normal intervals, J-point elevation, consistent with early re-pole, no prior for comparison. Discharge - Discharge Clinical Impression: Syncope Qualifiers: Syncope type: unspecified Qualified Code(s): R55 - Syncope and collapse Condition: Stable Disposition: ELOPED
[2018-12-08 19:09] VITALS: BP 131/89
--- NOTE | 2018-12-08 19:12 | RADIOLOGY REPORT (SQ) ---
EXAM DESCRIPTION: CHEST SINGLE VIEW COMPLETED DATE/TIME: 12/08/2018 7:00 pm REASON FOR STUDY: syncope COMPARISON: PA and lateral views of the chest from 02/07/2012. EXAM PARAMETERS: NUMBER OF VIEWS: One view. TECHNIQUE: Single frontal radiographic view of the chest acquired. RADIATION DOSE: NA LIMITATIONS: None. FINDINGS: LUNGS AND PLEURA: No consolidation, pleural effusion or pneumothorax MEDIASTINUM AND HILAR STRUCTURES: No mediastinal or hilar contour abnormality HEART AND VASCULAR STRUCTURES: The cardiac silhouette and pulmonary vasculature are within normal awan its. BONES: No acute findings. HARDWARE: None in the chest. OTHER: No other finding. IMPRESSION: No acute cardiopulmonary process. TECHNICAL DOCUMENTATION: JOB ID: [id number] [employer]- All Rights Reserved Reading location - IP/workstation name: [email or web address]
--- NOTE | 2018-12-08 20:19 | EKG REPORT ---
SEVERITY:- ABNORMAL ECG - SINUS RHYTHM FIRST DEGREE AV BLOCK BIATRIAL ABNORMALITIES CONSIDER RIGHT VENTRICULAR HYPERTROPHY LEFT VENTRICULAR HYPERTROPHY ST ELEV, PROBABLE NORMAL EARLY REPOL PATTERN : Confirmed by: Kusum Smith MD 08-Dec-2018 20:17:00
== END 2018-12-08 20:24 | disposition left against medical advice (07) ==
LOC: ER 17:21
DX: R55 Syncope and collapse (principal); F17.200 Nicotine dependence, unspecified, uncomplicated
CPT/HCPCS: 93005; 36415; 82553; 82550; 85025; 80053; 81001; 84484; 71045; 93010; J7030